=== PATIENT | male | born 1965 | race African-American/Black ===

== ENCOUNTER 2017-02-13 13:48 | Emergency (ER) | payer OTHER ==
[~2017-02-13] VITALS: Ht 180.3 cm; Wt 87.5 kg
[~2017-02-13 13:48] MED LIST: ENOX40P SQ; GEOD80CA PO; HYDR-3133 PO; MISC-163; OXYC1TAB63 PO; SSD1CRE TOPICAL; WALKER WHEELS/F1 MIS
[2017-02-13 13:49] VITALS: BP 143/82; PULSE 66; RESP 16; TEMP 97.3; O2SAT 98
--- NOTE | 2017-02-13 16:50 | PD ---
HPI Chief Complaint: Medical Clearance Time Seen by Provider: 16:44 Travel History International Travel<30 days: No Contact w/Intl Traveler<30days: No Traveled to known affect area: No History of Present Illness HPI 52-year-old male presents to the emergency department requesting pain medications for left leg pain. He has history of left femur fracture back in September and he says the instrumentation in his leg has moved and is coming undone and he is supposed to be having surgery again. Dr. Steven is his orthopedic. [facility]. He says [id number] medications are not working for the pain. He has no other medical complaints. He denies fever, chills, nausea, vomiting. No other modifying factors or associated signs and symptoms. History Past Medical Histgory Hx Cancer: No Hx Chemotherapy: No Hx Radiation Therapy: No Social History Alcohol Use: No Tobacco Use: No Allergies-Medications (Allergen,Severity, Reaction): Coded Allergies: No Known Allergies (Verified , 02/13/17) Reported Meds & Prescriptions Reported Meds & Active Scripts Active Walker with Front Wheels (Device) 1 Mis Mis 1 Ea .ROUTE DIRECTED 3-in-1 Bedside Toilet (Device) 1 Mis Mis 1 Ea .ROUTE DIRECTED Lovenox Inj (Enoxaparin Sodium) 40 Mg/0.4 Ml Syr 40 Mg SQ Q24H SSD Topical (Silver Sulfadiazine) 1 % Cream 1 Applic TOPICAL Q12HR Oxycodone-Acetaminophen 5-325 mg Tab 1 Tab PO Q4H PRN Reported Hydroxyzine HCl 25 Mg Tab 25 Mg PO HS Geodon (Ziprasidone) 80 Mg Cap 80 Mg PO BID Review of Systems Except as stated in HPI: all other systems reviewed are Neg Physical Exam Narrative GENERAL: Well-nourished, well-developed -Prydeinig male patient, in no acute distress SKIN: Warm and dry. Left hip surgical scar is completely healed and without erythema, edema, drainage. HEAD: Atraumatic. Normocephalic. EYES: Pupils equal and round. No scleral icterus. No injection or drainage. ENT: Mucosa pink and moist. Airway patent. NECK: Trachea midline. CARDIOVASCULAR: Regular rate. RESPIRATORY: No accessory muscle use. GASTROINTESTINAL: Flat. MUSCULOSKELETAL: No obvious deformities. No clubbing. No cyanosis. No edema. NEUROLOGICAL: Awake and alert. Oriented 3. No obvious cranial nerve deficits. Motor grossly within normal limits. Normal speech. PSYCHIATRIC: Appropriate mood and affect; insight and judgment normal. Data Data Last Documented VS Vital Signs Date Time Temp Pulse Resp B/P Pulse Ox O2 Delivery O2 Flow Rate FiO2 02/13/17 13:49 97.3 66 16 143/82 98 Room Air MDM Medical Screen Exam Complete: Yes Emergency Medical Condition: No Differential Diagnosis Pain management, narcotic seeking, medical clearance Narrative Course 52-year-old male requesting pain medication for history of left femur fracture from September with continued pain. Apparently some of the instrumentation in his leg has moved causing him pain. He has followed up at the [facility] and they're supposed to be arranging surgery with Dr. Steven, per the patient. I examined the surgical scar area and there are no signs of infection. Patient is afebrile and nontoxic appearing. I offered the patient a prescription for nonnarcotic and he declines at this time. Vital signs are stable and the patient is stable for outpatient follow-up and treatment. The patient has no urgent or emergent medical complaints. There is no emergent or urgent medical need at this time. I instructed the patient to follow up with their primary care provider. A medical screening exam was performed: At the time of evaluation the presenting medical condition was determined not to be of an emergent nature. The patient was given the option of receiving additional care, but declined. Patient was given options for additional community resources from which to obtain care. The Patient Has Been advised to seek medical attention for their presenting complaint. The patient has been advised to return to the ER at any time if an emergent condition develops. Primary Impression: Encounter for medical screening examination Condition: Stable G[facility] [employer] Feb 13, 2017 16:50
== END 2017-02-13 17:04 | disposition left against medical advice (07) ==
LOC: NEPK 13:48
DX: M79.605 Pain in left leg (principal)
CPT/HCPCS: 99281